=== PATIENT | female | born 1985 | race Two or more races ===

== ENCOUNTER 2023-03-13 23:28 | Inpatient (IN) | payer MEDICAID, OTHER ==
[~2023-03-13] VITALS: Ht 167.6 cm; Wt 90.0 kg
[2023-03-14 01:13] LABS: Basophils # (auto) 0 10 ^3/uL (0-0.2); Basophils % (auto) 0.3 % (0.0-2.0); Eosinophils # (auto) 0.1 10 ^3/uL (0-0.8); Hemoglobin 11.3 g/dL (12.2-16.2); Lymphocytes # (auto) 1.6 10 ^3/uL (0.4-5.4); Red Cell Distribution Width 17.8 % (11.8-14.3)
[2023-03-14 01:15] LABS: Eosinophils % (auto) 0.7 % (0.0-7.0); Hematocrit 34.1 % (36.0-46.0); Lymphocytes % (auto) 12.5 % (10.0-50.0); Mean Corpuscular Hemoglobin 35.6 pg (28.0-32.0); Mean Corpuscular Hgb Conc. 33.2 g/dL (32.0-36.0); Monocytes # (auto) 1.3 10 ^3/uL (0-1.3); Monocytes % (auto) 10.2 % (0.0-12.0); Neutrophils # (auto) 9.9 10 ^3/uL (1.6-8.6); Neutrophils % (auto) 76.3 % (37.0-80.0); Red Blood Cells 3.19 10^6/uL (4.0-5.20)
[2023-03-14 01:32] LABS: Alanine Aminotransferase 166 U/L (7-40); Albumin 2.8 g/dL (3.2-4.8); Alkaline Phosphatase 187 U/L (46-116); Anion Gap 4 (5-15); Aspartate Aminotransferase 229 U/L (13-40); BUN/Creatinine Ratio 16.9 (10.0-20.0); Blood Urea Nitrogen 11 mg/dL (9-23); Calcium 8.3 mg/dL (8.7-10.4); Carbon Dioxide 25 mmol/L (20-30); Chloride 99 mmol/L (98-107); Glucose 121 mg/dL (74-106); Lipase 84 U/L (12-53); Magnesium 1.8 mg/dL (1.6-2.6); Potassium 4.5 mmol/L (3.5-5.1); Sodium 128 mmol/L (136-145)
[2023-03-14 01:33] LABS: Bilirubin, Total 5.3 mg/dL (0.2-1.0)
[2023-03-14] MEDS ORDERED: cefTRIAXone 1GM/50ML D5W 50 ML IV ONE (05:45)
[2023-03-14] MEDS ORDERED: MORPHINE SULFATE 4 MG/ML SYR/VIAL IV ONE (05:45)
[2023-03-14] MEDS ORDERED: ONDANSETRON HCL 4 MG/2 ML VIAL IV ONE (05:45)
[2023-03-14 07:01] VITALS: TEMP 98.6
[2023-03-14] MEDS ORDERED: fentaNYL CITRATE 100 MCG/2 ML VL IV ONE (10:00)
[2023-03-14] MEDS ORDERED: ONDANSETRON HCL 4 MG/2 ML VIAL IV PRN (10:00)
[2023-03-14] MEDS ORDERED: traMADol HCL 50 MG TAB PO PRN (10:00)
[2023-03-14] MEDS ORDERED: NITROGLYCERIN 0.4 MG SL TAB SL PRN (10:00)
[2023-03-14] MEDS ORDERED: MORPHINE SULFATE INJ 2 MG/ml SYRG IV PRN ×2 (10:00)
[2023-03-14] MEDS ORDERED: DOCUSATE SOD 100 MG CAP PO PRN (10:00)
[2023-03-14] MEDS ORDERED: GABA-1250 PO (10:02)
[2023-03-14] MEDS ORDERED: ALBUMIN 25% 100 ML IV ONE (10:15)
[2023-03-14 10:52] LABS: INR 1.8 (0.9-1.15); Partial Thromboplastin Time 29.8 SEC (24.5-34.5); Prothrombin Time 18.2 sec (9.3-11.8)
[2023-03-14] MEDS: PIPERACILLIN-TAZOB 3.375GM 100 ML IV SCH ×2 (12:27→19:41)
[2023-03-14 16:06] LABS: Chloride 100 mmol/L (98-107); Potassium 4.3 mmol/L (3.5-5.1); Sodium 130 mmol/L (136-145)
[2023-03-14 16:07] LABS: Anion Gap 6 (5-15); Carbon Dioxide 24 mmol/L (20-30)
[2023-03-14 16:08] LABS: Calcium 8.6 mg/dL (8.5-10.1)
[2023-03-14 16:12] LABS: BUN/Creatinine Ratio 19.4 (10.0-20.0); Blood Urea Nitrogen 12 mg/dL (9-23); Glucose 114 mg/dL (74-106)
[2023-03-14 19:33] VITALS: BP 131/83; PULSE 103; RESP 15; O2SAT 99
[2023-03-14] MEDS ORDERED: GABAPENTIN 300 MG CAP PO SCH (22:00)
[2023-03-15] MEDS ORDERED: PANTOPRAZOLE 40 MG/10 ML VIAL INJ IV SCH (10:00)
[2023-03-15] MEDS ORDERED: SPIRONOLACTONE 25 MG TAB PO SCH (10:00)
[2023-03-15] MEDS ORDERED: FUROSEMIDE 20 MG TAB PO SCH (10:00)
[2023-03-16 10:51] LABS: Hepatitis B Surface Antigen Negative (Negative)
[2023-03-16 11:11] LABS: Hepatitis A Ab IgM Negative
[2023-03-16 11:12] LABS: Hepatitis B Core IgM Negative; Hepatitis C Antibody Negative (Negative)
== END 2023-03-14 20:28 | disposition left against medical advice (07) | DRG 280 ==
LOC: EDBD 23:28 → ER 23:28 → TELE 03-14 10:00
PROVIDERS: ADMIT Nurse Practitioner Family; ATTEND Nurse Practitioner Family
DX: K70.31 Alcoholic cirrhosis of liver with ascites (principal); K70.11 Alcoholic hepatitis with ascites; K85.20 Alcohol induced acute pancreatitis without necrosis or infection; K65.2 Spontaneous bacterial peritonitis; D69.6 Thrombocytopenia, unspecified; E83.59 Other disorders of calcium metabolism; E88.09 Other disorders of plasma-protein metabolism, not elsewhere classified; E87.1 Hypo-osmolality and hyponatremia; D53.9 Nutritional anemia, unspecified; Z53.29 Procedure and treatment not carried out because of patient's decision for other reasons; E66.9 Obesity, unspecified; Z68.32 Body mass index [BMI] 32.0-32.9, adult; F10.10 Alcohol abuse, uncomplicated; I10 Essential (primary) hypertension; N29 Other disorders of kidney and ureter in diseases classified elsewhere; R68.0 Hypothermia, not associated with low environmental temperature; R73.9 Hyperglycemia, unspecified
CPT/HCPCS: 36415; 74176; 76705; 80048; 80053; 80074; 83690; 83735; 83930; 85025; 85610; 85730; 87040; G0378; J0696; J2405; J2543; P9047